=== PATIENT | female | born 1985 | race Caucasian/White ===

== ENCOUNTER 2018-12-27 11:45 | Outpatient (CLI) | payer OTHER ==
[~2018-12-27 11:45] MED LIST: DOCU-131 PO; FERR325T17 PO; HYDR-3240 PO; IBUP-1222 PO; NONE PER PT; PNV91TAB3 PO
== END 2018-12-27 23:59 | disposition home or self-care (01) ==
LOC: LAB 11:45
PROVIDERS: ATTEND Internal Medicine
DX: O20.0 Threatened abortion (principal); Z3A.00 Weeks of gestation of pregnancy not specified
CPT/HCPCS: 36415; 84702

== ENCOUNTER → 2018-12-29 | Outpatient (CLI) | payer OTHER | END | disposition home or self-care (01) | LOC: LAB 08:39 | PROVIDERS: ATTEND Internal Medicine | DX: Z34.90 Encounter for supervision of normal pregnancy, unspecified, unspecified trimester (principal) | CPT/HCPCS: 36415; 84702 ==

== ENCOUNTER → 2019-05-25 | Outpatient (CLI) | payer OTHER ==
[2019-05-25 14:14] LABS: BASOPHILS # (AUTO) 0.02 x10^3/uL (0-0.1); BASOPHILS % (AUTO) 0 % (0-1); EOSINOPHILS # (AUTO) 0.06 x10^3/uL (0-0.4); EOSINOPHILS % (AUTO) 1 % (1-7); LYMPHOCYTES # (AUTO) 1.39 x10^3/uL (1-3.4); LYMPHOCYTES % (AUTO) 17 % (22-44); MD NO; MEAN CORPUSCULAR HEMOGLOBIN 34.4 pg (27.0-34.8); MEAN CORPUSCULAR HGB CONC 33.6 g/dL (32.4-35.8); MEAN CORPUSCULAR VOLUME 102.1 fL (80-100); MEAN PLATELET VOLUME 7.8 fL (7.4-10.4); MONOCYTES # (AUTO) 0.38 x10^3/uL (0.2-0.8); MONOCYTES % (AUTO) 5 % (2-9); NEUTROPHILS # (AUTO) 6.54 x10^3/uL (1.8-6.8); NEUTROPHILS % (AUTO) 78 % (42-75); PLATELET COUNT 228 x10^3/uL (130-400); RED BLOOD COUNT 3.79 x10^6/uL (3.82-5.3); RED CELL DISTRIBUTION WIDTH 13.6 % (9.6-15.2)
== END | disposition home or self-care (01) ==
LOC: LAB 08:55
PROVIDERS: ATTEND Obstetrics & Gynecology
DX: Z34.82 Encounter for supervision of other normal pregnancy, second trimester (principal); Z3A.00 Weeks of gestation of pregnancy not specified
CPT/HCPCS: 36415; 82950; 85025

== ENCOUNTER 2019-06-01 08:03 | Outpatient (CLI) | payer OTHER | END 2019-06-01 23:59 | disposition home or self-care (01) | LOC: LAB 08:03 | PROVIDERS: ATTEND Obstetrics & Gynecology | DX: Z32.02 Encounter for pregnancy test, result negative (principal) | CPT/HCPCS: 36415; 82951; 86850; 86900 ==

== ENCOUNTER → 2019-07-26 | Outpatient (CLI) | payer OTHER | END | disposition home or self-care (01) | LOC: LAB 09:30 | PROVIDERS: ATTEND Obstetrics & Gynecology | DX: Z34.83 Encounter for supervision of other normal pregnancy, third trimester (principal); Z3A.40 40 weeks gestation of pregnancy | CPT/HCPCS: 36415; 86592; 86803 ==

== ENCOUNTER 2019-08-15 08:00 | Outpatient (CLI) | payer OTHER ==
[2019-08-19] MEDS ORDERED: MIDAZOLAM 1 MG/ML, 2ML ONE (08:12)
== END 2019-08-15 23:59 | disposition home or self-care (01) ==
LOC: STAR 08:00
PROVIDERS: ATTEND Obstetrics & Gynecology
DX: Z02.9 Encounter for administrative examinations, unspecified (principal)

== ENCOUNTER 2019-08-19 03:46 | Inpatient (IN) | payer OTHER ==
[~2019-08-19] VITALS: Ht 162.6 cm; Wt 69.5 kg
[2019-08-19] MEDS ORDERED: NEWBORN KIT ONE (04:24)
[2019-08-19] MEDS ORDERED: METOCLOPRAMIDE 5 MG/ML, 2ML ONE (04:25)
[2019-08-19] MEDS ORDERED: OXYTOCIN 30U/ 0.9% NaCL 500ML 500 ML ONE ×2 (04:25→10:04)
[2019-08-19] MEDS ORDERED: SODIUM CITRATE/CITRIC ACID 30 ML UDC ONE (04:25)
[2019-08-19] MEDS ORDERED: LACTATED RINGERS 1,000 ML IVBOLUS ONE (04:30)
[2019-08-19] MEDS ORDERED: AZITHROMYCIN 500 MG in SODIUM CHLORIDE 0.9% 250 ML IV ONE ×2 (04:30→08:30)
[2019-08-19] MEDS ORDERED: TERBUTALINE 1 MG/ML, 1ML IV ONE (04:30)
[2019-08-19] MEDS ORDERED: SODIUM CITRATE/CITRIC ACID 30 ML UDC PO ONE (04:30)
[2019-08-19] MEDS ORDERED: METOCLOPRAMIDE 5 MG/ML, 2ML IV ONE (04:30)
[2019-08-19] MEDS ORDERED: FENTANYL PF 100 MCG/2ML ONE (04:38)
[2019-08-19] MEDS ORDERED: TERBUTALINE 1 MG/ML, 1ML ONE (04:38)
[2019-08-19 05:31] LABS: BASOPHILS # (AUTO) 0.02 x10^3/uL (0-0.1); BASOPHILS % (AUTO) 0 % (0-1); EOSINOPHILS # (AUTO) 0.02 x10^3/uL (0-0.4); EOSINOPHILS % (AUTO) 0 % (1-7); LYMPHOCYTES # (AUTO) 1.69 x10^3/uL (1-3.4); LYMPHOCYTES % (AUTO) 24 % (22-44); MD NO; MEAN CORPUSCULAR HEMOGLOBIN 35.1 pg (27.0-34.8); MEAN CORPUSCULAR HGB CONC 34.4 g/dL (32.4-35.8); MEAN CORPUSCULAR VOLUME 101.8 fL (80-100); MEAN PLATELET VOLUME 8.4 fL (7.4-10.4); MONOCYTES # (AUTO) 0.42 x10^3/uL (0.2-0.8); MONOCYTES % (AUTO) 6 % (2-9); NEUTROPHILS # (AUTO) 4.91 x10^3/uL (1.8-6.8); NEUTROPHILS % (AUTO) 70 % (42-75); PLATELET COUNT 139 x10^3/uL (130-400); RED BLOOD COUNT 3.85 x10^6/uL (3.82-5.3); RED CELL DISTRIBUTION WIDTH 13.4 % (9.6-15.2)
[2019-08-19] MEDS: FENTANYL PF 100 MCG/2ML IVPush PRN ×2 (05:31→13:30)
[2019-08-19] MEDS ORDERED: BUPIVACAINE 0.25% ONE (06:27)
[2019-08-19] MEDS ORDERED: FENTANYL/BUPIV./NS/PF 0 ML EPIDCONT ONE (06:30)
[2019-08-19] MEDS ORDERED: LIDOCAINE/MPF 2%-EPI 1:200K, 20 ML ONE (06:58)
[2019-08-19] MEDS ORDERED: morphine SULFATE/PF 0.5 MG/ML, 10ML ONE (07:18)
[2019-08-19] MEDS ORDERED: KETOROLAC 30 MG/1 ML ONE (07:19)
[2019-08-19] MEDS ORDERED: ONDANSETRON 2MG/ML, 2ML ONE (07:19)
[2019-08-19] MEDS ORDERED: CEFAZOLIN 1,000 MG ONE (07:19)
[2019-08-19] MEDS ORDERED: WATER-INJECTION,STERILE 10 ML IV ONE (07:19)
[2019-08-19] MEDS ORDERED: DEXAMETHASONE 4 MG/ML, 1ML ONE (07:19)
[2019-08-19] MEDS ORDERED: OXYTOCIN 10 UNITS/ML, 1ML ONE (07:19)
[2019-08-19] MEDS ORDERED: SODIUM CHLORIDE 0.9% PF 10ML ONE (07:20)
[2019-08-19] MEDS ORDERED: PHENYLEPHRINE 10 MG/ML ONE (07:20)
[2019-08-19] MEDS ORDERED: MIDAZOLAM 1 MG/ML, 2ML ONE (07:49)
[2019-08-19] MEDS: LACTATED RINGERS 1,000 ML IV SCH ×4 (08:34→18:34)
[2019-08-19] MEDS: IBUPROFEN 600 MG TABLET PO SCH ×3 (09:00→21:00)
[2019-08-19] MEDS: PRENATAL VIT/IRON/FA 1 EACH TABLET PO SCH (09:00)
[2019-08-19] MEDS: KETOROLAC 30 MG/1 ML IV SCH ×3 (09:00→21:00)
[2019-08-19] MEDS ORDERED: OXYcodone IR 5MG TABLET PO PRN (09:00)
[2019-08-19] MEDS ORDERED: CALCIUM CARBONATE 500 MG TAB.CHEW PO PRN (09:00)
[2019-08-19] MEDS ORDERED: BISACODYL 10 MG SUPP PR PRN (09:00)
[2019-08-19] MEDS ORDERED: ONDANSETRON 2MG/ML, 2ML IV PRN (09:00)
[2019-08-19] MEDS ORDERED: MISOPROSTOL 200 MCG TABLET PR PRN (09:00)
[2019-08-19] MEDS ORDERED: MISOPROSTOL 200 MCG TABLET ONE (09:09)
[2019-08-19] MEDS: OXYTOCIN 30U/ 0.9% NaCL 500ML 500 ML IV SCH ×2 (09:26→10:18)
[2019-08-19] MEDS ORDERED: EPHEDRINE 50 MG/ML, 1ML IVPush PRN (10:30)
[2019-08-19] MEDS ORDERED: NO SEDATIVES, TRANQUILIZERS OR ANTIEMETICS XX SCH (10:30)
[2019-08-19] MEDS ORDERED: DIPHENHYDRAMINE 50 MG/ML, 1ML IV PRN (10:30)
[2019-08-19] MEDS ORDERED: NALOXONE 0.4 MG/ML, 1ML IV PRN (10:30)
[2019-08-19] MEDS ORDERED: ONDANSETRON 2MG/ML, 2ML IVPush PRN (10:30)
[2019-08-19 11:05] VITALS: BP 111/61
[2019-08-19 13:10] VITALS: BP 103/63
[2019-08-19] MEDS: ACETAMINOPHEN 500 MG TABLET PO SCH ×2 (13:28→19:30)
[2019-08-19] MEDS: KETOROLAC 30 MG/1 ML IVPush SCH ×2 (14:58→21:03)
[2019-08-19 15:35] LABS: BASOPHILS # (AUTO) 0.01 x10^3/uL (0-0.1); BASOPHILS % (AUTO) 0 % (0-1); EOSINOPHILS % (AUTO) 0 % (1-7); LYMPHOCYTES # (AUTO) 0.95 x10^3/uL (1-3.4); LYMPHOCYTES % (AUTO) 7 % (22-44); MD SCAN; MEAN CORPUSCULAR HGB CONC 34.5 g/dL (32.4-35.8); MEAN CORPUSCULAR VOLUME 101.6 fL (80-100); MEAN PLATELET VOLUME 7.8 fL (7.4-10.4); MONOCYTES # (AUTO) 0.62 x10^3/uL (0.2-0.8); MONOCYTES % (AUTO) 5 % (2-9); NEUTROPHILS # (AUTO) 11.24 x10^3/uL (1.8-6.8); NEUTROPHILS % (AUTO) 88 % (42-75); PLATELET COUNT 150 x10^3/uL (130-400); RED BLOOD COUNT 3.09 x10^6/uL (3.82-5.3); RED CELL DISTRIBUTION WIDTH 13.4 % (9.6-15.2)
[2019-08-19 16:20] VITALS: BP 99/60
[2019-08-19] MEDS: OXYcodone/APAP 5/325MG TABLET PO PRN ×2 (16:27→22:49)
[2019-08-19 19:40] VITALS: BP 93/57
[2019-08-20 00:03] VITALS: BP 98/62
[2019-08-20] MEDS: LACTATED RINGERS 1,000 ML IV SCH ×3 (00:34→08:34)
[2019-08-20] MEDS: ACETAMINOPHEN 500 MG TABLET PO SCH ×4 (01:30→19:30)
[2019-08-20] MEDS: IBUPROFEN 600 MG TABLET PO SCH ×4 (03:00→20:21)
[2019-08-20] MEDS: KETOROLAC 30 MG/1 ML IV SCH (03:00)
[2019-08-20] MEDS: KETOROLAC 30 MG/1 ML IVPush SCH (03:40)
[2019-08-20 04:09] VITALS: BP 94/59
[2019-08-20] MEDS: OXYTOCIN 30U/ 0.9% NaCL 500ML 500 ML IV SCH (04:34)
[2019-08-20 08:00] VITALS: BP 111/71
[2019-08-20] MEDS: PRENATAL VIT/IRON/FA 1 EACH TABLET PO SCH (08:27)
[2019-08-20] MEDS: DOCUSATE 100 MG CAPSULE PO PRN ×2 (08:27→20:21)
[2019-08-20] MEDS: OXYcodone IR 5MG TABLET PO PRN ×3 (08:28→20:22)
[2019-08-20 20:00] VITALS: BP 112/74
[2019-08-20] MEDS: SIMETHICONE 80 MG CHEW TAB PO PRN (20:21)
[2019-08-21] MEDS: ACETAMINOPHEN 500 MG TABLET PO SCH ×2 (01:30→08:30)
[2019-08-21] MEDS: IBUPROFEN 600 MG TABLET PO SCH ×3 (02:38→11:59)
[2019-08-21] MEDS: OXYcodone IR 5MG TABLET PO PRN ×3 (02:38→13:17)
[2019-08-21 08:00] VITALS: BP 115/69
[2019-08-21] MEDS: DOCUSATE 100 MG CAPSULE PO PRN (08:30)
[2019-08-21] MEDS: PRENATAL VIT/IRON/FA 1 EACH TABLET PO SCH (08:30)
[2019-08-21] MEDS: SIMETHICONE 80 MG CHEW TAB PO PRN (08:30)
[2019-08-21] MEDS ORDERED: OXYC-302 PO (11:53)
== END 2019-08-21 14:44 | disposition home or self-care (01) | DRG 788 ==
LOC: LDIP 03:46 → 2NW 10:36
PROVIDERS: ADMIT Obstetrics & Gynecology; ATTEND Obstetrics & Gynecology
PROC: 10D00Z1 Extraction of Products of Conception, Low, Open Approach (ICD-10-PCS; principal; 2019-08-19)
DX: O34.211 Maternal care for low transverse scar from previous cesarean delivery (principal); Z83.3 Family history of diabetes mellitus; Z82.3 Family history of stroke; Z82.49 Family history of ischemic heart disease and other diseases of the circulatory system; Z80.8 Family history of malignant neoplasm of other organs or systems; Z37.0 Single live birth; Z3A.39 39 weeks gestation of pregnancy; O09.513 Supervision of elderly primigravida, third trimester; Z03.818 Encounter for observation for suspected exposure to other biological agents ruled out
CPT/HCPCS: 36415; 85025; 86592; 86850; 86900; 87635; G0378; J0456; J0690; J1100; J1885; J2250; J2274; J2405; J3010; J2370; J2590; J2765; J3105; J7050; J7120

== ENCOUNTER 2020-01-29 15:50 | Emergency (ER) | payer OTHER ==
[~2020-01-29] VITALS: Ht 162.6 cm; Wt 54.5 kg
[~2020-01-29 15:50] MED LIST changes: +OXYC-302 PO
[2020-01-29 16:18] VITALS: BP 103/75
== END 2020-01-29 16:30 | disposition home or self-care (01) ==
LOC: ED 15:53
DX: L24.9 Irritant contact dermatitis, unspecified cause (principal); Z20.828 Contact with and (suspected) exposure to other viral communicable diseases; R19.7 Diarrhea, unspecified
CPT/HCPCS: 87635; 99283

== ENCOUNTER → 2020-06-14 | Outpatient (CLI) | payer OTHER ==
[~2020-06-14] MED LIST changes: +HYDR-2214 PO; -HYDR-3240 PO; -OXYC-302 PO; +OXYC1TAB14 PO
[2020-06-14 14:59] LABS: BASOPHILS % (AUTO) 1 % (0-1); EOSINOPHILS % (AUTO) 2 % (1-7); LYMPHOCYTES % (AUTO) 45 % (22-44); MEAN CORPUSCULAR HGB CONC 34.2 g/dL (32.4-35.8); MEAN PLATELET VOLUME 7.6 fL (7.4-10.4); MONOCYTES % (AUTO) 7 % (2-9); NEUTROPHILS % (AUTO) 46 % (42-75); PLATELET COUNT 246 x10^3/uL (130-400); RED BLOOD COUNT 4.23 x10^6/uL (3.82-5.3); RED CELL DISTRIBUTION WIDTH 12.9 % (9.6-15.2)
[2020-06-14 15:11] LABS: MD NO
[2020-06-14 15:12] LABS: ALANINE AMINOTRANSFERASE 24 U/L (12-78); ALBUMIN 4.2 g/dL (3.4-5.0); ANION GAP 7 mmol/L (5-15); CALCIUM 8.9 mg/dL (8.5-10.1); CHLORIDE 108 mmol/L (98-107); CREATININE 0.81 mg/dL (0.55-1.02)
[2020-06-14 15:26] LABS: ALKALINE PHOSPHATASE 82 U/L (45-117); BILIRUBIN,TOTAL 0.9 mg/dL (0.2-1.0); CHOLESTEROL, TOTAL 207 mg/dL (140-239); HDL CHOL % 34 % (28-40); HDL CHOLESTEROL (DIRECT) 70 mg/dL (40-60); LDL CHOLESTEROL,CALCULATED 124 mg/dL (54-169); LDL/HDL RATIO 1.8 (0.5-3.0); T4 (THYROXINE) 5.5 mcg/dL (4.8-13.9); TOTAL PROTEIN 6.9 g/dL (6.4-8.2); TRIGLYCERIDES 66 mg/dL (50-200); VLDL CHOLESTEROL 13 mg/dL (0-25)
== END | disposition home or self-care (01) ==
LOC: LAB 14:37
PROVIDERS: ATTEND Internal Medicine
DX: R53.83 Other fatigue (principal); E55.9 Vitamin D deficiency, unspecified; Z83.42 Family history of familial hypercholesterolemia
CPT/HCPCS: 36415; 80053; 80061; 82306; 84436; 84443; 84481; 85025

== ENCOUNTER 2020-10-31 14:58 | Outpatient (CLI) | payer OTHER ==
[~2020-10-31 14:58] MED LIST changes: +OXYC1TAB12 PO; -OXYC1TAB14 PO
== END 2020-10-31 23:59 | disposition home or self-care (01) ==
LOC: LAB 14:58
PROVIDERS: ATTEND Physician Assistant
DX: Z01.89 Encounter for other specified special examinations (principal)
CPT/HCPCS: 36415; 86706; 86787